=== PATIENT | female | born 1990 | race African-American/Black ===

== ENCOUNTER 2016-05-03 12:02 | Emergency (ER) | payer OTHER ==
[~2016-05-03] VITALS: Ht 149.9 cm; Wt 60.0 kg
[~2016-05-03 12:02] MED LIST: CIPRO500 MG PO; Feosol PO; MOTRIN800 MG PO; Motrin PO; NOHOMEMEDS; Percocet 5/325,Endoc PO
[2016-05-03] MEDS ORDERED: MOTRIN600 MG PO (14:42)
[2016-05-03] MEDS ORDERED: BACTRIM,SEPT1 TABLET PO (14:42)
[2016-05-03] MEDS ORDERED: TRAMADOL HCL50 MG PO (14:42)
[2016-05-03 15:15] VITALS: BP 123/78
== END 2016-05-03 15:27 | disposition home or self-care (01) ==
LOC: RME 12:02 → EME 12:02 → RME 15:27
PROC: 0H9HXZZ Drainage of Right Upper Leg Skin, External Approach (ICD-10-PCS; principal; 2016-05-03)
DX: L02.415 Cutaneous abscess of right lower limb (principal); F17.200 Nicotine dependence, unspecified, uncomplicated
CPT/HCPCS: 99281; 99284; J2270